=== PATIENT | female | born 1970 | race Caucasian/White ===

== ENCOUNTER → 2016-10-17 | Outpatient (CLI) | payer OTHER ==
[~2016-10-17] MED LIST: AFRI0.052 EACH NARE; ALBU8I INH; ALBUAER3 INH; BUTA1CAP PO; DIPH25CA PO; FIORIC PO; GABA300C5 PO; HYCO5UDC PO; IBUP400T20 PO; OMEP20CA5 PO; OMEP20TA PO; POTA99TA4 PO; PSEU30LI PO; TAB-TAB PO; ZITH250T PO; sudafed PO
[2016-10-17 11:48] LABS: AUTOMATED NEUTROPHIL # 3.7 TH/MM3 (1.8-7.7); BASOPHIL # 0.1 TH/MM3 (0-0.2); BASOPHIL % 1.2 % (0.0-2.0); EOSINOPHIL # 0.3 TH/MM3 (0-0.4); EOSINOPHIL % 3.3 % (0.0-4.0); HEMATOCRIT 43.8 % (35.0-46.0); HEMO FLAGS DIFF FINAL; LYMPH % 40.3 % (9.0-44.0); LYMPHOCYTE # 3.1 TH/MM3 (1.0-4.8); MEAN CELL VOLUME 94.2 FL (80.0-100.0); MEAN CORPUSCULAR HEMOGLOBIN 32.8 PG (27.0-34.0); MEAN CORPUSCULAR HGB CONC 34.8 % (32.0-36.0); MONO % 6.2 % (0.0-8.0); PLATELET COUNT 325 TH/MM3 (150-450); RED BLOOD COUNT 4.65 MIL/MM3 (4.00-5.30); RED CELL DISTRIBUTION WIDTH 12.2 % (11.6-17.2); WHITE BLOOD COUNT 7.7 TH/MM3 (4.0-11.0)
[2016-10-17 11:48] LABS: BLOOD, URINE MOD (NEG); GLUCOSE,URINE NEG (NEG); KETONE, URINE NEG (NEG); MUCUS URINE FEW /lpf (OCC); NITRITE,URINE NEG (NEG); SQUAMOUS EPITHELIAL CELL URINE <1 /hpf (0-5); URINE COLOR YELLOW (YELLW/STRAW)
[2016-10-17 12:28] LABS: BETA HCG QUANT LESS THAN 1 MIU/ML (0-5)
[2016-10-17 12:32] LABS: ANION GAP 7 MEQ/L (5-15); BICARBONATE 25.1 MEQ/L (21.0-32.0); BLOOD UREA NITROGEN 11 MG/DL (7-18); CHLORIDE 106 MEQ/L (98-107); GLOMERULAR FILTRATION RATE 101 ML/MIN (>89); GLUCOSE,FASTING 96 MG/DL (74-99); POTASSIUM 4.8 MEQ/L (3.5-5.1); SODIUM (NA) 138 MEQ/L (136-145)
== END ==
LOC: CPRE 10:54
PROVIDERS: ATTEND Obstetrics & Gynecology
DX: Z01.812 Encounter for preprocedural laboratory examination (principal); D25.9 Leiomyoma of uterus, unspecified
CPT/HCPCS: 36415; 80048; 81001; 84702; 85025

== ENCOUNTER → 2016-11-01 | Day surgery (SDC) | payer OTHER ==
[~2016-11-01] MED LIST changes: +*morphine SULFATE 8 MG/ML PERIprocedure ONLY ONE; +ACETAMINOPHEN 1000 MG/100 ML VIAL IV ONE; -ALBU8I INH; +APREPITANT 40 MG CAP PO SCH; +BUPIVACAINE HCL PF 0.25% 30 ML VIAL INFIL ONE; +CHLORHEXIDINE GLUCONATE 2 % 1 PACK (2 CLOTHS) TOPICAL PRN; +DEXAMETHASONE SOD PHOS 4 MG/ML VIAL ONE; +DO NOT ADM ANY ANTICOAGULANT DRUGS PRN; +FAMOTIDINE 20 MG/2 ML VIAL ONE; -FIORIC PO; -HYCO5UDC PO; +HYDROmorphone HCL PF 1 MG/ML VIAL IVP PRN; +IBUPROFEN 600 MG TAB PO PRN; +INSULIN HUMAN REGULAR 1,000 UNITS/10 ML VIAL SQ PRN; +KETOROLAC TROMETHAMINE 30 MG/ML (IVP) VIAL IVP PRN; +KETOROLAC TROMETHAMINE 60 MG/2 ML (IM) VIAL IM ONE; +LACTATED RINGER'S 1000 ML INJ 1,000 ML IV SCH; +LACTATED RINGER'S 1000 ML IV PRN; +LORazepam 0.5 MG TAB PO PRN; +METOPROLOL TARTRATE 25 MG TAB PO PRN; +MIDAZOLAM HCL 2 MG/2 ML VIAL ONE; +NEOSTIGMINE METHYLSULFATE 10 MG/10 ML VIAL IV PUSH ONE; -OMEP20CA5 PO; +ONDANSETRON HCL 4 MG/2 ML VIAL IV PUSH ONE; +ONDANSETRON HCL 4 MG/2 ML VIAL IVP PRN; +PILL SPLITTER OTHER PRN; +POVIDONE IODINE 5% (ANTISEPSIS KIT) 4 APPLICATIONS EACH NARE PRN; +PROPOFOL 200 MG/20 ML AMP IV ONE; -PSEU30LI PO; +SODIUM CHLORID 0.9% 500 ML IV PRN; +SODIUM CHLORIDE 0.9% FLUSH 10 ML FLUSH IV FLUSH PRN; +SODIUM CHLORIDE 0.9% FLUSH 10 ML FLUSH IV FLUSH SCH; -TAB-TAB PO; -ZITH250T PO; +ceFAZolin 2 GM PREMIX 50 ML IV SCH; +ePHEDrine/NS 25 MG/5 ML SYR IV ONE; +fentaNYL CITRATE 250 MCG/5 ML AMP ONE; +oxyCODONE/ACETAMINOPHEN 5 MG/325 MG TAB PO PRN
[2016-11-01 05:35] VITALS: BP 151/87; PULSE 88; RESP 18; TEMP 98.2; O2SAT 96
[2016-11-01 10:55] VITALS: BP 149/71; PULSE 81; RESP 14; O2SAT 99
--- NOTE | 2016-11-01 12:53 | MP ---
cc: ISAAC HOLGUIN M.D. DATE OF SURGERY: 11/01/2016 PREOPERATIVE DIAGNOSIS Symptomatic uterine fibroids, pelvic pain, episodes of menorrhagia. PROCEDURE Exam under anesthesia, total laparoscopic hysterectomy, bilateral salpingo-oophorectomy, lysis of adhesions, robotic-assisted. POSTOPERATIVE DIAGNOSIS Symptomatic uterine fibroids, pelvic pain, episodes of menorrhagia. SURGEON Liang ANESTHESIA General endotracheal intubation. ESTIMATED BLOOD LOSS 100 cc. DRAINS Hogue to gravity. OPERATIVE FINDINGS The patient had a multilobulated uterus. She had a parasitizing slightly pedunculated fibroid off the left mid uterine body. Both ovaries appeared normal. There was some scar tissue on the right suggesting some previous endometriosis. Examination of the rest of the pelvis was clean. There were no abnormalities evident from the upper quadrants as well. INDICATION FOR PROCEDURE Patient with developing chronic pain and irregular bleeding, known history of uterine fibroids. The patient had a previous endometrial ablation, elected for definitive surgical removal of the fibroids with the uterus and the adnexa. DETAILS OF PROCEDURE The patient received preoperative antibiotics which were Levaquin and clindamycin. The patient was taken to the operating room in stable condition and underwent general anesthesia with endotracheal intubation. She was carefully positioned in the dorsal lithotomy position using Luca stirrups on her lower extremities. She had sequentials placed on her lower extremities for VTE prophylaxis. She was prepped and draped. A timeout was conducted and agreed by all present in the room. A simple exam revealed a midline uterus with a small cervix. The Hogue catheter was inserted by sterile technique. The cervix was secured with a single-tooth tenaculum and then dilated to accommodate a small VCare manipulator. The VCare was secured. The tenaculum was removed along with the retractor. The gloves were changed. The abdomen was examined. 0.25% plain Marcaine was injected into the port sites after the abdomen was prepped and draped. 0.25% plain Marcaine was used approximately 3-4 cc at each site. The umbilical port was chosen first and then placing a 5 mm visible port trocar into the peritoneal cavity directly without complication, insufflating at low pressure and then placing the patient in steep Trendelenburg to evaluate the pelvic anatomy. The anatomy was noted above. There was distortion of the left adnexa due to the fibroid but the ovary itself was normal size and shape. Some small peritoneal adhesions were noted on both ovaries. The accessory ports were placed using #8 trocars, two on the right and one on the left. The umbilical port was changed to a 12 mm camera port. The da Marce patient cart was then side docked with #2 arm on the left and 1 and 3 on the right. Monopolar scissors were attached to the #2 arm and a bipolar grasper to #1 and a fenestrated grasper to #3. There were no collisions. Good articulation was noted. Good visualization was noted. Positioning was confirmed without complication. After the patient cart was secured attention was directed to the surgeon cart where good visualization was noted. Evaluation of the pelvic anatomy was complete. The decision was to initiate the dissection on the patient's right side, dividing the round ligament and opening the retroperitoneal space, opening up the peritoneum anteriorly allowing the bladder to fall away from the lower uterine segment and then dissecting the infundibular pelvic vessels easily and then skeletonizing the vessels and ligating them hemostatically. This allowed dissection of the uterine artery and vein on the right side, making them hemostatic in the standard fashion using the bipolar and then the pedicle sharply. Dissection of the contralateral side was complicated by distortion of the fibroid. The retroperitoneal space was opened after dividing the round ligament and then dissecting out the ureter. The ureter was well deep in the pelvis, peristalsing normally, documented on both the right and left. The remaining dissection to isolate the uterine artery and vein on the left side required meticulous dissection due to the distortion with the fibroid. This was accomplished without difficulty, making the uterus isolated and ligating the uterine artery and vein on the left. Once this was complete the colpotomy incisions were made circumferentially allowing removal of the uterus with the cervix and the adnexa. After removal of the uterine specimen through the vaginal opening a #1 Stratafix suture was introduced and then closure of the cuff was accomplished in a linear fashion using the barbed suture. Good placement was noted. The integrity of the closure was tested by the property management assistant by placing a sponge stick within the vaginal vault. No separation or lack of integrity was noted at the closure. The suture ends were trimmed at the level of the peritoneum. The needle was secured. Examination of all pedicle sites were dry. There was no active bleeding or hematoma. Both ureters were easily visualized peristalsing normally, draining into the bladder. The Hogeu catheter was draining clear urine throughout the entire case. At this point the da Marce robot was undocked. Straight laparoscopy was reintroduced. The suture needle was retrieved and removed. The pelvis was irrigated with copious normal saline. Examination off pressure showed a small amount of peritoneal ooze from the left sidewall. This was secured by placing a piece of operative hemostatic material using Ethicon SNoW. This was again observed off pressure demonstrating good hemostatic control. At the completion of laparoscopy the umbilical port was closed with a CrossBow using a #1 Vicryl suture closing the 12 mm port site. Observation off pressure again revealed no complication or bleeding. All trocars were then removed after decompressing the pneumoperitoneum and the skin incisions were closed with a subcuticular stitch of 4-0 Monocryl with Steri-Strips and Band-Aids. Examination of the vaginal vault was dry. The Hogue was draining clear urine. At the completion of the case the final count was correct. The patient was stable. She was taken to the recovery room on room air. Isaac Holguin MD [facility]/BT /10:56 AM /12:40 PM
== END | disposition home or self-care (01) ==
LOC: HSDC 05:28
PROVIDERS: ATTEND Obstetrics & Gynecology
DX: D25.9 Leiomyoma of uterus, unspecified (principal); N71.1 Chronic inflammatory disease of uterus; N80.0 Endometriosis of uterus; N83.8 Other noninflammatory disorders of ovary, fallopian tube and broad ligament; D28.2 Benign neoplasm of uterine tubes and ligaments; N83.02 Follicular cyst of left ovary; K66.0 Peritoneal adhesions (postprocedural) (postinfection); K21.9 Gastro-esophageal reflux disease without esophagitis; F17.200 Nicotine dependence, unspecified, uncomplicated; E66.9 Obesity, unspecified; Z88.8 Allergy status to other drugs, medicaments and biological substances
CPT/HCPCS: 58571; 86850; 86900; 86901; 88307; J0131; J0690; J1100; J1885; J2250; J2270; J2405; J2710; J3010; J7120; J8501

== ENCOUNTER 2017-09-25 08:28 | Emergency (ER) | payer OTHER ==
[~2017-09-25] VITALS: Ht 172.7 cm; Wt 96.3 kg
[~2017-09-25 08:28] MED LIST changes: -*morphine SULFATE 8 MG/ML PERIprocedure ONLY ONE; -ACETAMINOPHEN 1000 MG/100 ML VIAL IV ONE; -APREPITANT 40 MG CAP PO SCH; -BUPIVACAINE HCL PF 0.25% 30 ML VIAL INFIL ONE; -CHLORHEXIDINE GLUCONATE 2 % 1 PACK (2 CLOTHS) TOPICAL PRN; -DEXAMETHASONE SOD PHOS 4 MG/ML VIAL ONE; -DO NOT ADM ANY ANTICOAGULANT DRUGS PRN; -FAMOTIDINE 20 MG/2 ML VIAL ONE; -HYDROmorphone HCL PF 1 MG/ML VIAL IVP PRN; +IBUP1TAB5 PO; -IBUP400T20 PO; -IBUPROFEN 600 MG TAB PO PRN; -INSULIN HUMAN REGULAR 1,000 UNITS/10 ML VIAL SQ PRN; -KETOROLAC TROMETHAMINE 30 MG/ML (IVP) VIAL IVP PRN; -KETOROLAC TROMETHAMINE 60 MG/2 ML (IM) VIAL IM ONE; -LACTATED RINGER'S 1000 ML INJ 1,000 ML IV SCH; -LACTATED RINGER'S 1000 ML IV PRN; -LORazepam 0.5 MG TAB PO PRN; -METOPROLOL TARTRATE 25 MG TAB PO PRN; -MIDAZOLAM HCL 2 MG/2 ML VIAL ONE; -NEOSTIGMINE METHYLSULFATE 10 MG/10 ML VIAL IV PUSH ONE; -OMEP20TA PO; +OMEP20TA93 PO; -ONDANSETRON HCL 4 MG/2 ML VIAL IV PUSH ONE; -ONDANSETRON HCL 4 MG/2 ML VIAL IVP PRN; -PILL SPLITTER OTHER PRN; -POVIDONE IODINE 5% (ANTISEPSIS KIT) 4 APPLICATIONS EACH NARE PRN; -PROPOFOL 200 MG/20 ML AMP IV ONE; -SODIUM CHLORID 0.9% 500 ML IV PRN; -SODIUM CHLORIDE 0.9% FLUSH 10 ML FLUSH IV FLUSH PRN; -SODIUM CHLORIDE 0.9% FLUSH 10 ML FLUSH IV FLUSH SCH; -ceFAZolin 2 GM PREMIX 50 ML IV SCH; -ePHEDrine/NS 25 MG/5 ML SYR IV ONE; -fentaNYL CITRATE 250 MCG/5 ML AMP ONE; -oxyCODONE/ACETAMINOPHEN 5 MG/325 MG TAB PO PRN
[2017-09-25 08:33] VITALS: BP 213/105; PULSE 80; RESP 18; TEMP 97.5; O2SAT 97
[2017-09-25] MEDS ORDERED: NASA30TA PO (08:56)
[2017-09-25] MEDS ORDERED: ESTR0.5T PO (08:56)
[2017-09-25] MEDS ORDERED: VARE1PAK3 PO (08:56)
[2017-09-25] MEDS ORDERED: METO50TA PO (08:56)
[2017-09-25] MEDS ORDERED: TRIA40P IM (08:56)
--- NOTE | 2017-09-25 09:27 | PD ---
HPI Chief Complaint: Musculoskeletal Complaint Time Seen by Provider: 08:58 Travel History International Travel<30 days: No Contact w/Intl Traveler<30days: No Traveled to known affect area: No History of Present Illness HPI Patient comes emergency department requesting results of her MRI that was ordered by primary care doctor 10 days ago at an outpatient imaging center. Patient states that she try to get the results from primary care doctor and was told she could walk in this morning at 820. Patient reports she went to her doctor's office this morning found that the appointments were full. Patient states that she was told that she could come back in at 11:00 or go to the emergency department. Patient decided to come to the emergency department. Patient says she has been having pain in her right hand primarily in the fingers that is a sharp stabbing pain that radiates proximally. Pain waxes and wanes. Patient denies anything making it worse. Pain improves with heat. Denies any known injury. Patient is left-hand dominant. History Past Medical Histgory Tetanus Vaccination: Unknown Hx Cancer: No Social History Alcohol Use: Yes (OCCASIONAL) Tobacco Use: Yes (1/2 PPD CIGARETTES) Allergies-Medications (Allergen,Severity, Reaction): Coded Allergies: amoxicillin (Unverified Adverse Reaction, Severe, Nausea/Vomiting, 09/25/17) diarrhea clavulanic acid (Unverified Adverse Reaction, Severe, Nausea/Vomiting, 09/25) diarrhea Reported Meds & Prescriptions Reported Meds & Active Scripts Active Reported Estradiol 0.5 Mg Tab 0.5 Mg PO DAILY Kenalog-40 Inj (Triamcinolone Acetonide) 40 Mg/Ml Inj 40 Mg IM ONCE Metoprolol Tartrate 50 Mg Tab 50 Mg PO DAILY Chantix Starting Month Andrea (Varenicline) 0.5 mg X 11 & 1 mg X 42 Pack 1 Tab PO DIRECTED Nasal Decongestant (Pseudoephedrine HCl) 30 Mg Tab 1 Tab PO BID Afrin Nasal Floyd (Oxymetazoline HCl) 0.05% Floyd 2-3 Floyd EACH NARE Q12H PRN Fioricet (Oazbgafehn-Lzergdpnyajpl-Npcnwqfg) 50-300-40 Mg Cap 1 Cap PO Q4H PRN Diphenhydramine (Diphenhydramine HCl) 25 Mg Cap 50 Mg PO HS PRN Potassium 99 Mg Tablet 1 Tab PO DAILY Ibuprofen 400 Mg Tab 800 Mg PO Q8H PRN Omeprazole 20 Mg Tab 20 Mg PO DAILY Proair Hfa 8.5 GM Inh (Albuterol Sulfate) 90 Mcg/Act Aer 2 Puff INH Q4-6H PRN 108 mcg/actuation Review of Systems Except as stated in HPI: all other systems reviewed are Neg Physical Exam Narrative GENERAL: Well-developed, overly nourished, in no acute distress, and non-ill appearing. SKIN: Focused skin assessment warm and dry. HEAD: Atraumatic. Normocephalic. EYES: Pupils equal and round. EOMI. No scleral icterus. No injection or drainage. ENT: No nasal bleeding or discharge. Mucous membranes pink and moist. NECK: Trachea midline. Supple. No nuclear rigidity. CARDIOVASCULAR: Radial pulses 2+, intact, and equal bilaterally. Capillary refill less than 2 seconds. RESPIRATORY: No accessory muscle use. No respiratory distress. MUSCULOSKELETAL: No obvious deformities. No clubbing. No cyanosis. No edema. Full range of motion. Wrist: FROM and equal BL with passive flexion, extension , and pronation/supination. Capillary refill less than 2 seconds and equal BL. FROM distal to injury and equal BL. Strength equal BL. NV intact. Flexion and extension of thumb equal BL. Equal strength and movement with abduction/ adductions of BL fingers. Strategic Manager strength equal BL. No tenderness to the anatomical snuffbox. NEUROLOGICAL: Awake and alert. No obvious cranial nerve deficits. Motor grossly within normal limits. Normal speech. PSYCHIATRIC: Appropriate mood and affect; insight and judgment normal. Data Data Last Documented VS Vital Signs Date Time Temp Pulse Resp B/P (MAP) Pulse Ox O2 Delivery O2 Flow Rate FiO2 09/25/17 08:33 97.5 80 18 213/105 (141) 97 MDM Medical Screen Exam Complete: Yes Emergency Medical Condition: No Narrative Course History and physical exam findings are not consistent with an emergent medical condition. She was given the option of receiving additional care, but has declined. Therefore the appropriate counseling recommendations were discussed with the patient and she was instructed to follow-up with her primary care physician as soon as possible for reevaluation. Patient was also informed of community resources from which she can obtain additional care. She is agreeable and verbalizes an understanding of the proposed plan. The patient states she will immediately return to the emergency department if her current complaints do not improve, new symptoms arise, or emergent condition develops. Patient ambulated out of the emergency department without difficulty. Primary Impression: Encounter for medical screening examination Disposition: [facility]-ED USE ONLY Condition: Stable Shai Conrad September 25, 2017 09:27
== END 2017-09-25 09:20 | disposition left against medical advice (07) ==
LOC: PHEFT 08:28
DX: M79.641 Pain in right hand (principal); F17.200 Nicotine dependence, unspecified, uncomplicated; Z79.899 Other long term (current) drug therapy; Z88.0 Allergy status to penicillin; Z88.8 Allergy status to other drugs, medicaments and biological substances
CPT/HCPCS: 99281